=== PATIENT | female | born 1965 | race Caucasian/White ===

== ENCOUNTER → 2017-06-10 12:34 | Outpatient (CLI) | payer BC, SELFPAY ==
--- NOTE | 2017-06-10 | XR_ITS ---
XR foot RT min 3V HISTORY: ] Vein ITS.REASON: BILATERAL FOOT PAIN ORDERING PHYSICIAN: Susanna Coley DPM PATIENT AGE: 51 years COMPARISON: None FINDINGS: Weightbearing views are performed. There is moderate hallux valgus with first metatarsophalangeal angle of 33 degrees. There is mild lateral subluxation of the proximal phalanx of the great toe with hypertrophic changes involving the distal aspect of the first metatarsal and mild osteoarthritic change of the first metatarsophalangeal joint.. There is minimal pes planus. Small calcaneal spur is noted at 10 mm. No fracture or dislocation. No lytic or blastic change. IMPRESSION: Hallux valgus with bunion formation with minimal pes planus
--- NOTE | 2017-06-10 | XR_ITS ---
XR foot LT min 3V HISTORY: Left foot pain ITS.REASON: BILATERAL FOOT PAIN ORDERING PHYSICIAN: Susanna Coley DPM PATIENT AGE: 51 years COMPARISON: None FINDINGS: Weightbearing views are performed. There is moderate hallux valgus with first metatarsophalangeal angle of 35 degrees with moderate lateral subluxation of the first proximal phalanx at 8 mm and mild osteoarthritic change of the first metatarsophalangeal joint with bony hypertrophic change of the distal aspect of the first metatarsal. There is mild pes planus. A small calcaneal spur is present at 10 mm. No fracture or dislocation. No lytic or blastic change. IMPRESSION: Hallux valgus with bunion formation and mild pes planus
== END ==
PROVIDERS: Referring Provider Podiatrist; Visit Provider Podiatrist
DX: M79.671 Pain in right foot (principal); M79.672 Pain in left foot
CPT/HCPCS: 73630

== ENCOUNTER → 2017-07-23 15:13 | Outpatient (POV) | payer BC, SELFPAY | DX: Z00.00 Encounter for general adult medical examination without abnormal findings (principal) ==

== ENCOUNTER → 2018-07-14 11:22 | Outpatient (POV) | payer BC, SELFPAY | PROVIDERS: Visit Provider Dermatology | DX: Z00.00 Encounter for general adult medical examination without abnormal findings (principal) ==

== ENCOUNTER → 2021-03-19 10:07 | Outpatient (CLI) | payer BC, SELFPAY ==
--- NOTE | 2021-03-19 10:14 | XR_ITS ---
PROCEDURE: XR LUMBAR SPINE MIN 4V CLINICAL INDICATION: ACUUTE RT SIDED LOW BACK PAIN, W/ RIGHT SIDED SCIATICA COMPARISON: No exams were available for comparison FINDINGS: There are and alignment. All lumbar vertebrae appear intact. Disc spaces are well maintained throughout except for minor narrowing at L4-5. There is no pars defect. There prominent hypertrophic facet changes at the L4-5 and L5-S1 levels. The SI joints are normal. 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 Rip Nazario MD 03/21/2021 14:43 Dr. Rip Nazario MD in [place] 03/21/2021 14:43
== END ==
PROVIDERS: PCP Family Medicine; Visit Provider Family Medicine
DX: M54.41 Lumbago with sciatica, right side (principal)
CPT/HCPCS: 72110

== ENCOUNTER 2022-04-07 16:37 | Emergency (ER) | payer BC, SELFPAY ==
[2022-04-07 16:38] VITALS: BP 149/91; PULSE 106; RESP 20; TEMP 36.7; O2SAT 95; BMI 28.0
--- NOTE | 2022-04-07 16:50 | CT_ITS ---
PROCEDURE INFORMATION: Exam: CT Abdomen And Pelvis Without Contrast Exam date and time: 04/07/2022 6:06 PM Age: 56 years old Clinical indication: Abdominal pain; Flank; Right lower quadrant (rlq); Additional info: R flank pain TECHNIQUE: Imaging protocol: Computed tomography of the abdomen and pelvis without contrast. Radiation optimization: All CT scans at this facility use at least one of these dose optimization techniques: automated exposure control; mA and/or kV adjustment per patient size (includes targeted exams where dose is matched to clinical indication); or iterative reconstruction. COMPARISON: ABDPELW CT abdomen pelvis w con 08/29/2018 10:33 PM FINDINGS: Lungs: Subsegmental atelectasis in lower lobes Liver: No focal hepatic lesions within the limits of noncontrast examination. Gallbladder and bile ducts: Gallbladder is distended without radiopaque cholelithiasis. No biliary ductal dilation. Pancreas: No peripancreatic fluid stranding. No main pancreatic ductal dilation. Spleen: No splenomegaly. Adrenal glands: The adrenal glands are normal. Kidneys and ureters: Mild right hydroureteronephrosis proximal to a 1 x 1 x 1 mm calculus in the distal ureter. Left kidney is unremarkable. Stomach and bowel: Unremarkable. No obstruction. No mucosal thickening. Appendix: A normal appendix is identified. Intraperitoneal space: Unremarkable. No free air. No significant fluid collection. Vasculature: Unremarkable. No abdominal aortic aneurysm. Lymph nodes: No evidence of retroperitoneal or mesenteric lymphadenopathy Urinary bladder: Unremarkable as visualized. Reproductive: Unremarkable as visualized. Bones/joints: Unremarkable. No acute fracture. Soft tissues: Unremarkable. IMPRESSION: Mild right hydroureteronephrosis proximal to a 1 x 1 x 1 mm calculus in the distal ureter.
--- NOTE | 2022-04-07 16:57 | [facility].EDGENADL ---
Discharge Plan Disposition Patient Disposition: Home, Self-Care Condition: Good Prescriptions Prescriptions: New ketorolac 10 mg tablet 10 mg PO Q8H PRN (Reason: pain) Qty: 14 0RF ondansetron 4 mg tablet,disintegrating 4 mg PO Q8H PRN (Reason: nausea and vomiting) 4 Days Qty: 12 0RF tamsulosin [Flomax] 0.4 mg capsule 0.4 mg PO DAILY Qty: 7 0RF hydrocodone-acetaminophen 5-325 mg tablet 1 tab PO Q6H PRN (Reason: pain) Qty: 10 0RF No Action ondansetron 4 MG tablet,disintegrating 4 mg PO TIDP PRN (Reason: Nausea And Vomiting) Qty: 10 0RF ibuprofen [IBU] 800 MG tablet 800 mg PO Q8HP PRN (Reason: Moderate Pain) Qty: 20 0RF Referrals Follow up/Referrals: Mauro Ramirez MD [Primary Care Provider] - See instructions Activity Restrictions/Add. Instructions Additional Instructions/Restrictions: You were evaluated in the emergency department today and diagnosed with a kidney stone. Please greens picker your prescriptions at the pharmacy and take them as needed. Follow-up with your primary care provider over the next 3 days. Return to the emergency department for any new or worsening symptoms. Clinical Impressions Clinical Impression: Right distal ureteral calculus Instructions Patient Instructions: DI for Kidney Stones Discharge ED Provider: Kendra Haley General Adult HPI General Chief complaint: Abdominal Pain Stated complaint: Abd Pain Time Seen by Provider: 04/07/22 16:47 History of Present Illness HPI narrative: This patient is a 56-year-old female with no significant past medical history presented to the emergency department for evaluation of right flank/right lower abdominal pain. She states that this started suddenly while she was leaving pharmacy today. She had gone to the pharmacy to get medications for what she presumed to be a urinary tract infection. She states that the symptoms started approximately week ago, and she was put on antibiotics by her work. She had been having improvement in her symptoms until today when they recurred. This severe pain is new, however, and is constant and unbearable. Nothing makes it better or worse. She has never experienced any like this before. She denies any fevers, but she states that she is diaphoretic and has nausea. No other concerns noted at this time, such as vomiting, changes in bowel movements, or other issues. Related Data Previous Rx's Medication Instructions Recorded ibuprofen 800 mg tablet (IBU) 800 mg PO Q8HP PRN Moderate Pain 08/30/18 #20 tabs ondansetron 4 mg disintegrating 4 mg PO TIDP PRN Nausea And 08/30/18 tablet Vomiting ##10 hydrocodone 5 mg-acetaminophen 325 1 tab PO Q6H PRN pain #10 tabs 04/07/22 mg tablet ketorolac 10 mg tablet 10 mg PO Q8H PRN pain #14 tabs 04/07/22 ondansetron 4 mg disintegrating 4 mg PO Q8H PRN nausea and 04/07/22 tablet vomiting 4 days #12 tabs tamsulosin 0.4 mg capsule (Flomax) 0.4 mg PO DAILY #7 caps 04/07/22 Allergies Allergy/AdvReac Type Severity Reaction Status Date / Time No Known Allergies Allergy Verified 08/29/18 21:04 PFSH PFS Social History Smoking Status: Current every day smoker tobacco type: cigarettes packs per day: 1 alcohol intake: never substance use type: denies use current occupational status: employed Travel in the last 8 weeks: None ROS Obtained: Yes All systems reviewed & no additional complaints except as documented 14 point review of systems obtained and negative except as mentioned in HPI. Physical Exam General General appearance: alert Comment: Uncomfortable appearing Head Head exam: atraumatic and normocephalic Eye Eye exam: Present normal appearance, PERRL and EOMI ENT ENT exam: Present normal exam and normal oropharynx Neck Neck exam: Present normal inspection and full ROM Chest Chest inspection: Present normal inspection and symmetric chest wall rise Respiratory Resp
--- NOTE | 2022-04-07 17:08 | PC.NURSE ---
rad notified of CT order
[2022-04-07 17:09] LABS: Basophils # 0.1 K/mm3 (0-0.2); Eosinophils # 0.1 K/mm3 (0.0-0.4); Eosinophils % 2.6 % (0.1-12.0); Hematocrit 40.1 % (37.0-47.0); Hemoglobin 12.9 g/dL (12.2-16.2); Lymphocytes # 0.9 K/mm3 (0.7-4.5); Lymphocytes % 15.2 % (10-50); Mean Corpuscular HGB Conc 32.1 g/dL (31.8-35.4); Mean Corpuscular Hemoglobin 31.5 pg (27.0-31.2); Mean Corpuscular Volume 98.2 fl (81-99); Mean Platelet Volume 7.5 fl (7.4-10.4); Monocytes # 0.3 K/mm3 (0.1-1.0); Monocytes % 6.1 % (1.7-9.3); Neutrophils # 4.2 K/mm3 (1.8-7.8); Neutrophils % 75.2 % (37.0-80.0); Platelet Count 317 K/mm3 (142-424); Red Blood Count 4.08 M/mm3 (4.20-5.40); Red Cell Distribution Width 13.7 % (11.5-17.5); White Blood Count 5.6 K/mm3 (4.8-10.8)
[2022-04-07 17:10] LABS: Microscopic, Urine URINE MICROSCOPIC (MICROSCOPIC)
[2022-04-07 17:12] LABS: Appearance,Urine CLEAR (Clear); Bilirubin,Urine Negative (Negative); Blood, Urine 2+ (Negative); Color,Urine YELLOW (Yellow); Glucose,Urine (UA) Negative (Negative); Ketones,Urine Negative (Negative); Leukocyte Esterase,Urine Negative (Negative); Nitrate,Urine Negative (Negative); Protein,Urine TRACE (Negative); Specific Gravity, Urine >= 1.030 (1.005-1.030); Urobilinogen,Urine 0.2 EU/dl (0.2)
[2022-04-07 17:22] LABS: Alanine Aminotransferase 20 U/L (12-78); Albumin Level 4.2 g/dl (3.5-5.0); Albumin/Globulin Ratio 1.1 (1.1-1.8); Alkaline Phosphatase 208 U/L (38-126); Anion Gap 16.9 mEq/L (5-15); Aspartate Amino Transferase 30 U/L (14-36); Bilirubin,Total 0.3 mg/dl (0.2-1.3); Blood Urea Nitrogen 12 mg/dl (7-17); Calcium 9.4 mg/dl (8.4-10.2); Carbon Dioxide 25 mmol/L (22.0-30.0); Chloride 101 mmol/L (98-107); Estimated Glomerular Filt Rate 65 ml/min (>60); GFR (African American) 78 ML/MIN (>60); Glucose 117 mg/dl (74-100); Lipase 32 U/L (23-300); Potassium 3.9 mmoL/L (3.5-5.1); Sodium 139 mmol/L (136-145); Total Protein,Serum 8.2 g/dl (6.3-8.2)
[2022-04-07 17:25] LABS: Bacteria,Urine 1+ /lpf; WBC,Urine Occasional #/hpf (0-3)
[2022-04-07 18:33] VITALS: BP 138/77; PULSE 88; RESP 17; TEMP 36.7; O2SAT 100
== END 2022-04-07 18:35 | disposition home or self-care (01) ==
PROVIDERS: Emergency Provider Emergency Medicine; PCP Family Medicine
DX: N20.1 Calculus of ureter (principal)
CPT/HCPCS: 74176; 80053; 81001; 83690; 85025; 87086; 87088; 96374; 96375; 99284; J2405

== ENCOUNTER 2024-02-03 08:48 | Day surgery (SDC) | payer BC, SELFPAY ==
[2024-02-03] MEDS: TETRACAINE 0.5% OPTH SOL 15ML OP ×3 (10:12→10:23)
[2024-02-03] MEDS: PHENYLEPHRINE 2.5% OPHTH SOLN 2ML OP ×3 (10:12→10:23)
[2024-02-03] MEDS: CYCLOPENTOLATE 2% OPHTH SOLN 2ML BOTTLE OP ×3 (10:13→10:24)
[2024-02-03 10:14] VITALS: BP 148/69; PULSE 96; RESP 17; TEMP 37.1; O2SAT 99; BMI 26.6
[2024-02-03 11:09] VITALS: BP 127/56; PULSE 82; RESP 15; TEMP 36.6; O2SAT 99
[2024-02-03] MEDS: MIDAZOLAM 2MG/2ML VIAL 1 MG IV (11:09)
[2024-02-03 11:14] VITALS: BP 121/58; PULSE 62; RESP 15; TEMP 36.6; O2SAT 97
[2024-02-03 11:19] VITALS: BP 119/79; PULSE 78; RESP 15; TEMP 36.6; O2SAT 97
[2024-02-03] MEDS: TIMOLOL 0.5% OPTH SOLN 5ML OP (11:21)
[2024-02-03] MEDS: LIDOCAINE 1% PF 2ML AMPULE 2 ML IJ (11:21)
[2024-02-03] MEDS: TOBRAMYCIN/DEX OPTH SUSP 2.5ML OP (11:21)
[2024-02-03 11:24] VITALS: BP 119/78; PULSE 55; RESP 15; TEMP 36.6; O2SAT 98
[2024-02-03 11:30] VITALS: BP 130/61; PULSE 45; RESP 16; TEMP 36.3; O2SAT 99
--- NOTE | 2024-02-03 13:23 | [facility].PROCNOTE ---
[facility] Procedure Note Date: 02/03/24 Time: 13:23 Procedure Note:: Preoperative Diagnosis: Cataract combined NS Cortical Complex [Right] Eye Postop diagnosis: same Operation: complex Microscopic phacoemulsification with intraocular lens implant [Right] Eye Specimen: None Blood Loss: None The patient was examined in the office with a complaint of poor vision in the [right] eye. The patient reports that this interferes with ADLs such as reading, watching TV and/or driving or the vision is like looking through a foggy haze and is very troubling. The patient was examined and found to have a visually significant cataract with best corrected vision of [20/400] by refraction and/or glare testing. Treatment options, risks and benefits were explained and the patient elected to have cataract surgery in an attempt to improve their vision. The patient had the eye anesthetized with topical tetracaine, the eye ways prepped and draped in the usual fashion for cataract surgery. A paracentesis and a temporal keratotomy were made. 0.2cc of 1% lidocaine PF was placed into the anterior chamber. And aqueous/viscoelastic exchange was done. 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 The pupil didn't dilate. A malyugin ring was used to expand the pupil. A 360 degree capsulorexis was performed. Thorough hydrodissection and delineation with BSS on a cannula was done. The lens nucleus was phacoemulsified with CDE of 5.30. Residual cortical material was removed using automated I&A The capsular bag was deepened with viscoelastica and a PCIOL was placed in the capsular bag with good centration and stability. The malyugin ring was removed. Residual viscoelastic was removed using automated I&A. The keratotomy incision was hydrated with BSS on a cannula. The wound were checked and found to be water tight. IOP was checked digitally and adjusted as needed so as not to be too high. 1 drop of timolol 0.5%, ofloxacin, prednisolone acetate and ketorolac was instilled and eye shield taped over the eye. The patient was taken to recovery in good condition and will be seen postoperatively.
== END 2024-02-03 11:40 | disposition home or self-care (01) ==
PROVIDERS: PCP Family Medicine; Visit Provider Ophthalmology
PROC: (CPT 66982; principal; 2024-02-03 11:30)
DX: H25.11 Age-related nuclear cataract, right eye (principal); H53.8 Other visual disturbances
CPT/HCPCS: 66982; J2250; V2632